=== PATIENT | male | born 1950 | race Caucasian/White ===

== ENCOUNTER 2017-05-26 08:51 | Day surgery (SDC) | payer OTHER, MEDICARE ==
[~2017-05-26 08:51] MED LIST: Acetaminophen TAB* 325 MG PO PRN; Buffered Lidocaine 0.9% SYRIN* 5 ML/SYR SYRINGE INTRADERM ONE
[2017-05-26] MEDS ORDERED: Midazolam* 1 MG/ML 2 ML VIAL (2 MG) ONE (10:43)
[2017-05-26 11:52] VITALS: BP 111/70
--- NOTE | 2017-05-26 13:16 | OP ---
DATE OF OPERATION: 05/26/2017. DATE OF : 1950. SURGEON: Moe Gagnon M.D. PREOPERATIVE DIAGNOSIS: Cataract right eye. POSTOPERATIVE DIAGNOSIS: Cataract right eye. OPERATIVE PROCEDURE: Phacoemulsification right eye with IOL. PROCEDURE: The patient was brought to the operating room after being given 1/2% Alcaine with epinep hrine drops in the preoperative area. The eye was prepped and draped in the usual sterile fashion. Sterile drape and eyelid speculum were placed. Again, topical 1/2% Alcaine with epinephrine was gi [place]. A paracentesis incision was made at the 9 o'clock position with the No.75 blade. Clear cornea incision 2.2 x 2.2-mm was created at the 12 o'clock position starting at the anterior limbus using the 2.2-mm keratome. The anterior chamber was irrigated with 0.4 mL of 1% non-preservative intracam eral lidocaine and filled with DisCoVisc. A capsulorrhexis was completed using the cystotome and kennedi e Utrata forceps. Hydrodissection was performed with balanced salt solution. The lens nucleus was r emoved with the Phacoemulsification handpiece without incident. Cortex was removed with the irrigat ion-aspiration handpiece. The capsular bag was re-inflated using DisCoVisc and an [id number] implant was inserted with the shooter. The irrigation-aspiration handpiece was used to remove all residual DisCoVisc. The eye was refilled with balanced salt solution and the wound checked and found to be watertight. Topical Maxitrol drops were given. [id number]/[facility] #: [id number]
[2017-05-26] MEDS ORDERED: Lidocaine 1% MPF* 2 ML VIAL ONE (16:54)
[2017-05-26] MEDS ORDERED: Cyclopentolate 1% OPTH.SOL* 2 ML BTL ONE (16:54)
[2017-05-26] MEDS ORDERED: acetaZOLAMIDE TAB* 250 MG ONE (16:54)
[2017-05-26] MEDS ORDERED: Povidone Iodine 5% OPTH* 30 ML BTL ONE (16:54)
[2017-05-26] MEDS ORDERED: Neomycin/Polymy/Dex OPTH.SUSP* MAXITROL 0.1% 5 ML ONE (16:54)
[2017-05-26] MEDS ORDERED: Flurbiprofen 0.03% OPTH.SOL* 2.5 ML BTL ONE (16:54)
[2017-05-26] MEDS ORDERED: Phenylephrine 2.5% OPTH.SOL* 2 ML BTL ONE (16:54)
[2017-05-26] MEDS ORDERED: Proparacaine 0.5% OPHTH.SOL* 15 ML BTL ONE (16:55)
== END 2017-05-26 11:53 | disposition home or self-care (01) ==
LOC: OREAST 08:51
PROVIDERS: ATTEND Specialist
DX: H25.11 Age-related nuclear cataract, right eye (principal); H43.813 Vitreous degeneration, bilateral; H50.00 Unspecified esotropia
CPT/HCPCS: A9270-GY; J2250; V2632